=== PATIENT | female | born 1945 | race Caucasian/White ===

== ENCOUNTER 2022-02-06 17:52 | Inpatient (IN) | payer MEDICARE, OTHER ==
[~2022-02-06] VITALS: Ht 162.6 cm; Wt 49.9 kg
[~2022-02-06 17:52] MED LIST: 24HR ALLERGY REL5 MG PO; ARICEPT10 MG PO; ELIQUIS 2.5 MG2.5 MG PO; FERROUS SULFAT325 M2 PO; FLOVENT 44 MCG7.9 GM INH; LEVOFLOXACIN500 MG PO; LEXAPRO10 MG PO; LOPRESSOR 25 MG25 MG PO; LORTAB 5-325 M1 EACH PO; MELATONIN3 MG PO; MIRALAX17 GM PO; NAMENDA10 MG PO; NORCO 5-325 TA1 EACH PO; PROTONIX40 MG PO; PULMICORT0.5 MG/21 INH; SINGULAIR10 MG PO; SYNTHROID25 MCG PO; TYLENOL 500 MG500 MG PO
[2022-02-06 18:09] LABS: HEMOGLOBIN 13.4 gm/dl (12.3-15.3); RED BLOOD COUNT 3.9 M/UL (4.00-5.10); WHITE BLOOD COUNT 12.2 K/UL (4.5-11.0)
[2022-02-06 18:46] LABS: BUN/CREATININE RATIO 70 (0-10)
[2022-02-07 05:41] LABS: HEMOGLOBIN 12.1 gm/dl (12.3-15.3); RED BLOOD COUNT 3.61 M/UL (4.00-5.10); WHITE BLOOD COUNT 10.8 K/UL (4.5-11.0)
[2022-02-07 06:13] LABS: BUN/CREATININE RATIO 49 (0-10)
--- NOTE | 2022-02-07 06:26 | NUR ---
lab called with a critical lactic acid, attempt made to contact MD WITH RESULTS. WILL CONTINE TO CONTACT MD.
[2022-02-07] MEDS ORDERED: ABILIFY2 MG PO (09:31)
[2022-02-07] MEDS ORDERED: DIVALPROEX SOD125 MG PO (09:33)
[2022-02-07] MEDS ORDERED: SENNA8.6 MG PO (09:34)
[2022-02-07] MEDS ORDERED: ZINC OXIDE60 GM TP (09:35)
[2022-02-07] MEDS ORDERED: MEGESTROL400 MG/11 PO (09:36)
[2022-02-07] MEDS ORDERED: PROAIR HFA8.5 GM INH (09:38)
[2022-02-07] MEDS ORDERED: NASAL SPRAY44 ML INH (09:42)
[2022-02-07] MEDS ORDERED: HYDROCODONE-AC1 EACH PO (10:14)
[2022-02-07] MEDS ORDERED: BISACODYL10 MG PO (10:16)
[2022-02-07] MEDS ORDERED: ALOE VESTA TOP (10:22)
[2022-02-07] MEDS ORDERED: ENULOSE10 GM/15 M PO (14:29)
[2022-02-07] MEDS ORDERED: ATIVAN0.5 MG PO (14:32)
[2022-02-08 11:10] LABS: HEMOGLOBIN 10.9 gm/dl (12.3-15.3); RED BLOOD COUNT 3.22 M/UL (4.00-5.10); WHITE BLOOD COUNT 11.4 K/UL (4.5-11.0)
[2022-02-08 11:44] LABS: BUN/CREATININE RATIO 42 (0-10)
[2022-02-09 03:14] LABS: RED BLOOD COUNT 3.28 M/UL (4.00-5.10); WHITE BLOOD COUNT 12.5 K/UL (4.5-11.0)
[2022-02-09 04:46] LABS: BUN/CREATININE RATIO 37 (0-10)
[2022-02-10 03:09] LABS: HEMOGLOBIN 11.5 gm/dl (12.3-15.3); RED BLOOD COUNT 3.44 M/UL (4.00-5.10)
[2022-02-10 03:19] LABS: WHITE BLOOD COUNT 8.7 K/UL (4.5-11.0)
[2022-02-10 04:14] LABS: BUN/CREATININE RATIO 29 (0-10)
--- NOTE | 2022-02-10 17:09 | NUR ---
MULTIPLE ATTEMPTS WERE MADE TO INSERT DBBHOFF TUBE UNSUCCESSFULLY. FLOAR POOL NURSE AND ICU NURSE TRIED UNSUCCESSFULLY.
[2022-02-11 03:27] LABS: HEMOGLOBIN 11.4 gm/dl (12.3-15.3); RED BLOOD COUNT 3.38 M/UL (4.00-5.10); WHITE BLOOD COUNT 8.9 K/UL (4.5-11.0)
[2022-02-11 03:29] LABS: BUN/CREATININE RATIO 20 (0-10)
[2022-02-14 07:59] LABS: HEMOGLOBIN 12.2 gm/dl (12.3-15.3); RED BLOOD COUNT 3.66 M/UL (4.00-5.10); WHITE BLOOD COUNT 10.9 K/UL (4.5-11.0)
[2022-02-14 08:34] LABS: BUN/CREATININE RATIO 8 (0-10)
--- NOTE | 2022-02-14 09:46 | NUR ---
ST feeding patient at this time for evaluation .
[2022-02-15 03:32] LABS: HEMOGLOBIN 11.3 gm/dl (12.3-15.3); RED BLOOD COUNT 3.37 M/UL (4.00-5.10); WHITE BLOOD COUNT 11.4 K/UL (4.5-11.0)
[2022-02-15 04:26] LABS: BUN/CREATININE RATIO 9 (0-10)
--- NOTE | 2022-02-15 11:20 | NUR ---
ST, CM and I was discussing about patient swallowing condition and patient has to be suctioned several times of her saliva more. patiemt able to eat ordered diet in a very small amount. patient is 1:1 feed. contacted patient granddaughter and informed her of GI doctor available tomorrow and if possible to be here to discussed with the doctor if patient going to have gtube/pegtube. informed her of the above situation also and she is agreeable to be here alose. dr. laird was on the floor and reported to her of patient increase heart rate and the telelemtry reading on the monitor. she acknowledged
[2022-02-16 03:29] LABS: HEMOGLOBIN 10.7 gm/dl (12.3-15.3); RED BLOOD COUNT 3.21 M/UL (4.00-5.10); WHITE BLOOD COUNT 9.6 K/UL (4.5-11.0)
[2022-02-16 04:24] LABS: BUN/CREATININE RATIO 16 (0-10)
[2022-02-17 05:37] LABS: RED BLOOD COUNT 2.97 M/UL (4.00-5.10); WHITE BLOOD COUNT 9.5 K/UL (4.5-11.0)
[2022-02-17 06:59] LABS: BUN/CREATININE RATIO 12 (0-10)
[2022-02-18] MEDS ORDERED: PROTONIX40 MG PO (14:03)
[2022-02-18] MEDS ORDERED: SYNTHROID25 MCG PO (14:03)
[2022-02-18] MEDS ORDERED: IPRAT-ALBUT 0.5-3 ML NEB (14:03)
[2022-02-18] MEDS ORDERED: ATIVAN0.5 MG PO (14:03)
[2022-02-18] MEDS ORDERED: HYDROCODONE-AC1 EACH PO (14:05)
[2022-02-18] MEDS ORDERED: AMOX TR-K CLV1 EAC4 PO (14:16)
[2022-02-18] MEDS ORDERED: NYSTATIN60 GM EXT (14:16)
[2022-02-18] MEDS ORDERED: LOPRESSOR 25 MG25 MG PO (14:23)
== END 2022-02-19 00:02 | DRG 177 ==
LOC: ER1 17:52 → CDU 22:05 → M/S 22:05
PROVIDERS: Internal Medicine; Internal Medicine Infectious Disease; Physician Assistant; ADMIT Internal Medicine
PROC: 0DH63UZ Insertion of Feeding Device into Stomach, Percutaneous Approach (ICD-10-PCS; principal; 2022-02-11)
PROC: 3E0G76Z Introduction of Nutritional Substance into Upper GI, Via Natural or Artificial Opening (ICD-10-PCS; 2022-02-11)
DX: J69.0 Pneumonitis due to inhalation of food and vomit (principal); J96.21 Acute and chronic respiratory failure with hypoxia; Z20.822 Contact with and (suspected) exposure to COVID-19; Z66 Do not resuscitate; E87.2 Acidosis; E87.0 Hyperosmolality and hypernatremia; G93.40 Encephalopathy, unspecified; E03.9 Hypothyroidism, unspecified; E86.0 Dehydration; E87.6 Hypokalemia; G30.9 Alzheimer's disease, unspecified; F02.80 Dementia in other diseases classified elsewhere, unspecified severity, without behavioral disturbance, psychotic disturbance, mood disturbance, and anxiety; K21.9 Gastro-esophageal reflux disease without esophagitis; I10 Essential (primary) hypertension; F32.A Depression, unspecified; F41.9 Anxiety disorder, unspecified; R13.12 Dysphagia, oropharyngeal phase; Z74.01 Bed confinement status; Z99.81 Dependence on supplemental oxygen
CPT/HCPCS: 36415; 36600; 71045; 74230; 80048; 80053; 82140; 82550; 82553; 82803; 83605; 83735; 84132; 84484; 85025; 85027; 87040; 92526; 92610; 92611-GN; 93005; 94640; 94664; 94760; 96374; 99285; A6212; C9113; J0295; J1335; J1650; J2270; J2543; J3480; J7030; J7040; J7070; U0002